=== PATIENT | female | born 2000 | race American Indian/Alaskan Native ===

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

== ENCOUNTER 2019-09-10 20:43 | Emergency (ER) | payer MEDICAID, OTHER ==
--- NOTE | 2019-09-10 22:27 | Emergency Department Report ---
ED Female HPI - General Chief complaint: Urogenital-Female Stated complaint: UTI/ CYST Time Seen by Provider: 09/10/19 22:28 Source: patient Mode of arrival: Ambulatory Limitations: No Limitations - History of Present Illness Initial comments: This is a 19-year-old female with no prior medical history presents the ED today complaining of left-sided breast swelling cyst x2 to 3 days. Patient states that she has had this Bartholin cyst about 3 times and has had it drained. Patient also stating that for the past couple of days she has noticed blood in her urine and some pressure with urination patient also admits to urinary urgency. Patient states last menstrual period was 2 to 3 weeks ago. She denies fever/chills/nausea vomiting abdominal pain, chest pain shortness of breath or any other symptoms MD Complaint: dysuria Location: suprapubic Severity: mild Severity scale (0 -10): 4 Worsens with: urination - Related Data Previous Rx's Medication Instructions Recorded Last Taken Type Vit Calc,Iron,Folic 1 each PO DAILY #30 tablet 11/10/16 05/09/17 Rx [ Vitamins] 1 HYDROcodone/APAP 5-325 [Taylor 1 each PO Q6HR PRN #7 tablet 05/11/17 Unknown Rx 5/325] Ibuprofen [Motrin 600 MG tab] 600 mg PO Q8H PRN #30 tablet 05/11/17 Unknown Rx Multivitamin with Iron 1 each PO DAILY #30 tablet 05/11/17 Unknown Rx [Multivitamins with Iron] Fluconazole (Nf) [Diflucan TAB] 150 mg PO ONCE #1 tablet 09/10/19 Unknown Rx Phenazopyridine [Pyridium] 200 mg PO BID #10 tab 09/10/19 Unknown Rx Sulfamethoxazole/Trimethoprim 1 each PO BID #20 tablet 09/10/19 Unknown Rx [Bactrim DS TAB] Allergies Allergy/AdvReac Type Severity Reaction Status Date / Time No Known Allergies Allergy Verified 05/10/17 04:30 ED Review of Systems ROS: Stated complaint: UTI/ CYST Other details as noted in HPI Comment: All other systems reviewed and negative ED Past Medical Hx - Past Medical History Hx Hypertension: No Hx Congestive Heart Failure: No Hx Diabetes: No Hx Deep Vein Thrombosis: No Hx Renal Disease: No Hx Sickle Cell Disease: No Hx Seizures: No Hx Asthma: No Hx COPD: No Hx HIV: No - Surgical History Past Surgical History?: No - Social History Smoking Status: Current Some Day Smoker Substance Use Type: None, Marijuana - Medications Home Medications: Home Medications Medication Instructions Recorded Confirmed Last Taken Type Vit Calc,Iron,Folic 1 each PO DAILY #30 tablet 11/10/16 05/10/17 05/09/17 Rx [ Vitamins] 1 HYDROcodone/APAP 5-325 [Taylor 1 each PO Q6HR PRN #7 tablet 05/11/17 Unknown Rx 5/325] Ibuprofen [Motrin 600 MG tab] 600 mg PO Q8H PRN #30 tablet 05/11/17 Unknown Rx Multivitamin with Iron 1 each PO DAILY #30 tablet 05/11/17 Unknown Rx [Multivitamins with Iron] Fluconazole (Nf) [Diflucan TAB] 150 mg PO ONCE #1 tablet 09/10/19 Unknown Rx Phenazopyridine [Pyridium] 200 mg PO BID #10 tab 09/10/19 Unknown Rx Sulfamethoxazole/Trimethoprim 1 each PO BID #20 tablet 09/10/19 Unknown Rx [Bactrim DS TAB] ED Physical Exam - General Limitations: No Limitations General appearance: alert, in no apparent distress - Head Head exam: Present: atraumatic, normocephalic - Eye Eye exam: Present: normal appearance - ENT ENT exam: Present: mucous membranes moist - Neck Neck exam: Present: normal inspection - Respiratory Respiratory exam: Present: normal lung sounds bilaterally. Absent: respiratory distress - Cardiovascular Cardiovascular Exam: Present: regular rate, normal rhythm. Absent: systolic murmur, diastolic murmur, rubs, gallop - GI/Abdominal GI/Abdominal exam: Present: soft, normal bowel sounds - External exam: Present: swelling (of the left bartholin gland 2-3 cm in diameter). Absent: erythema, lesions, lacerations, bleeding Speculum exam: Present: normal speculum exam. Absent: cervical discharge, vaginal bleeding - Extremities Exam Extremities exam: Present: normal inspection - Back Exam Back exam: Present: normal inspection - Neurological Exam Neurological exam: Present: alert, oriented X3 - Psychiatric Psychiatric exam: Present: normal affect, normal mood - Skin Skin exam: Present: warm, dry, intact, normal color. Absent: rash ED Course Vital Signs 09/10/19 20:46 Temperature 98.5 F Pulse Rate 107 H Respiratory 20 Rate Blood Pressure 121/74 O2 Sat by Pulse 99 Oximetry ED Medical Decision Making - Medical Decision Making 19-year-old male presents with a bacterial urinary tract infection and a mild Bartholin gland cyst ED course: Patient received an antibiotic dose and Motrin during ED stay Urinalysis is positive for bacteria, WBC, yeast, test negative I discussed this findings with the patient. I discussed the patient to make sure he completes all of the antibiotic dose even until symptoms resolve. I discussed with the patient on Pyridium will turn his urine orangeish color but will stop once he stops taking pyridium. I discussed with the patient to follow-up with her [facility] in the next 2 to 3 days. Referrals given to patient. Patient is in no acute distress, patient also has on instructions were given to him. She had on exam for ED stay. Critical care attestation.: If time is entered above; I have spent that time in minutes in the direct care of this critically ill patient, excluding procedure time. ED Disposition Clinical Impression: Hematuria due to acute cystitis, Bartholin gland cyst Disposition: TO HOME OR SELFCARE Is pt being admited?: No Does the pt Need Aspirin: No Condition: Stable Instructions: Acute Hematuria (ED), Bartholin Cyst (ED), Sitz Bath (GEN) Additional Instructions: Make sure to follow up with the [facility] as discussed. Take all your medications as you've been prescribed. If you have any worsening symptoms or develop new symptoms please return to ED immediately. Prescriptions: Sulfamethoxazole/Trimethoprim [Bactrim DS TAB] 1 each PO BID #20 tablet Fluconazole (Nf) [Diflucan TAB] 150 mg PO ONCE #1 tablet Phenazopyridine [Pyridium] 200 mg PO BID #10 tab Referrals: PRIMARY CARE [Primary Care Provider] - 3-5 Days [facility] [Provider Group] - 3-5 Days [facility] [Provider Group] - 3-5 Days [facility] [Provider Group] - 3-5 Days Forms: Accompanied Note, Work/School Release Form(ED)
[2019-09-10 22:48] LABS: HCG Qualitative,Urine Negative (Negative)
[2019-09-10 22:49] LABS: Bilirubin,Urine NEG (Negative); Blood,Urine LG (Negative); Color,Urine Red (Yellow)
[2019-09-10 22:50] LABS: RBC,Urine > 182.0 /HPF (0.0-6.0); WBC,Urine > 182.0 /HPF (0.0-6.0)
[2019-09-10 23:24] VITALS: BP 118/68
== END 2019-09-10 23:24 | disposition home or self-care (01) ==
LOC: ED 20:43
DX: N30.01 Acute cystitis with hematuria (principal); N75.0 Cyst of Bartholin's gland; F17.200 Nicotine dependence, unspecified, uncomplicated; F12.10 Cannabis abuse, uncomplicated; Z79.899 Other long term (current) drug therapy
CPT/HCPCS: 81001; 81025; 99283

== ENCOUNTER 2020-04-05 08:38 | Emergency (ER) | payer MEDICAID ==
[2020-04-05 09:10] VITALS: BP 116/73
[2020-04-05] MEDS ORDERED: IBUPROFEN 600 MG TAB PO ONE (09:27)
[2020-04-05] MEDS ORDERED: oxyCODONE 5 MG TAB PO ONE (11:21)
[2020-04-05] MEDS ORDERED: IBUPROFEN 800 MG TAB PO ONE (11:21)
--- NOTE | 2020-04-05 11:22 | Emergency Department Report ---
Abscess Boil HPI - HPI Chief Complaint: Skin/Abscess/Foreign Body Stated Complaint: CYST Time Seen by Provider: 04/05/20 11:16 Duration: >1 Week Location: Other Severity: Severe History: Yes Pain, No Fever, No Purulent Drainage, No Numbness, No Foreign Body, No Previous History, No Insect Bite HPI: Patient is a 19-year-old -[place] female who comes in with a left labial cyst. She states that she has not been able to get in with her [facility]. States that she has not been able to take the pain so she comes to the ER. She has no vaginal discharge or concern for STI. No dysuria. No fever or chills. Patient is tachycardic on admission to the ER most likely because she is walking with a limp due to the pain. Patient's last menstrual period was the beginning of the month. She is not concerned for . Patient states that she gets these abscesses often and and that they have never had to I&D them before. She states that she normally soaks in the bathtub and they get better. Patient denies any fever or chills. Patient's largest complaint is the pain that the abscess is causing. Home Medications: Previous Rx's Medication Instructions Recorded Last Taken Type Fluconazole (Nf) [Diflucan TAB] 150 mg PO ONCE #2 tablet 04/05/20 Unknown Rx Sulfamethoxazole/Trimethoprim 1 each PO BID #14 tablet 04/05/20 Unknown Rx [Bactrim DS TAB] Allergies/Adverse Reactions: Allergies Allergy/AdvReac Type Severity Reaction Status Date / Time No Known Allergies Allergy Verified 05/10/17 04:30 ED Review of Systems ROS: Stated complaint: CYST Other details as noted in HPI Comment: All other systems reviewed and negative ED Past Medical Hx - Past Medical History Previous Medical History?: No Hx Hypertension: No Hx Congestive Heart Failure: No Hx Diabetes: No Hx Deep Vein Thrombosis: No Hx Renal Disease: No Hx Sickle Cell Disease: No Hx Seizures: No Hx Asthma: No Hx COPD: No Hx HIV: No - Surgical History Past Surgical History?: No - Family History Family history: no significant - Social History Smoking Status: Never Smoker Substance Use Type: None - Medications Home Medications: Home Medications Medication Instructions Recorded Confirmed Last Taken Type Fluconazole (Nf) [Diflucan TAB] 150 mg PO ONCE #2 tablet 04/05/20 Unknown Rx Sulfamethoxazole/Trimethoprim 1 each PO BID #14 tablet 04/05/20 Unknown Rx [Bactrim DS TAB] ED Abscess Boil Physical Exam - Exam General: Vital signs noted. No distress. Alert and acting appropriately. Front/Back of Body, Lg (Color): 1 - Left labial abscess. Flatulence noted. No drainage. Size: 5 cm Exam: Yes Tenderness (Left labial tenderness), Yes Fluctuance, Yes Normal Neurologic Exam, Yes Normal Circulation, No Surrounding Cellulites/Erythema (Normal right labia.), No Lymphangitis, No Crepitation, No Heart Murmur Exam: Patient is alert and oriented with no focal deficit. S1-S2. Lungs clear to auscultation. Abdomen soft nontender. No CVA tenderness. I & D Note - I & D Note I & D Note: Area cleansed with Betadine and saline. 2% lidocaine 3 mL to numb the area. The abscess involves the entire left labia. It is large. I&D with a straight blade for only a small amount of purulent discharge. Packing was placed. The Dianna and cyst was not palpable underneath the abscess tissue. Patient educated on care and management of the packing. She is also been educated on care and management of the abscess. Patient was cleaned and given a pad to collect any additional drainage. Patient tolerated procedure well. ED Course Vital Signs 04/05/20 09:09 Temperature 97.3 F L Pulse Rate 127 H Respiratory 18 Rate Blood Pressure 116/73 [Right] O2 Sat by Pulse 97 Oximetry Critical care attestation.: If time is entered above; I have spent that time in minutes in the direct care of this critically ill patient, excluding procedure time. ED Medical Decision Making - Medical Decision Making I&D completed. Patient medicated for pain and started on Bactrim. Have discussed with patient discharge plan of care including Epson salt soaks, follow-up, medications, activity and diet. She verbalizes understanding. I have told patient that the abscess is quite large and I would have expected to get much more fluid out than I did. I have explained to her that I am concerned that the Bartholin cyst may actually be involved although I cannot palpate the cyst per se. I have encouraged her to follow my discharge instructions and follow-up with [facility] so that they can further evaluate this area. She verbalizes understanding and has been given an additional referral to our [facility]. Heart rate on discharge 90 per provider exam. Vital Signs 04/05/20 04/05/20 04/05/20 09:09 11:34 11:35 Temperature 97.3 F L Pulse Rate 127 H Respiratory 18 20 20 Rate Blood Pressure 116/73 [Right] O2 Sat by Pulse 97 Oximetry - Differential Diagnosis vag cyst vs bartholans ED Disposition Clinical Impression: Labial abscess Disposition: DC-01 TO HOME OR SELFCARE Is pt being admited?: No Does the pt Need Aspirin: No Condition: Stable Instructions: Skin Abscess, Skin Abscess, [id number] Additional Instructions: Medication as ordered today Motrin or Tylenol for pain Follow-up with primary care and/or [facility] in 48 hours for recheck-have provided you a referral should you need it. Diet and activity as tolerated Warm compresses will help with the pain. Continue your warm baths but use Epson salts to help drain the area. If the packing should follow-up do not be alarmed this is to be expected. Do not pick at or attempt to pop the abscess. Prescriptions: Sulfamethoxazole/Trimethoprim [Bactrim DS TAB] 1 each PO BID #14 tablet Fluconazole (Nf) [Diflucan TAB] 150 mg PO ONCE #2 tablet Referrals: PRIMARY MD LENA [Primary Care Provider] - 3-5 Days CINDY PARRA MD [Staff Physician] - 3-5 Days Time of Disposition: 11:22
[2020-04-05] MEDS ORDERED: SULFAMETHOXAZOLE/TRIMETHOPRIM 800/160MG DS TAB PO ONE (11:24)
[2020-04-05] MEDS ORDERED: LIDOCAINE (2%) 20 MG/1 ML VIAL 20 ML MDV INFILTRATI ONE (11:44)
[2020-04-05] MEDS ORDERED: SODIUM CHLORIDE 0.9% IRR 500 ML BOTTLE IR ONE (13:00)
== END 2020-04-05 13:05 | disposition home or self-care (01) ==
LOC: ED 08:38
DX: N76.4 Abscess of vulva (principal); Z79.899 Other long term (current) drug therapy

== ENCOUNTER 2021-01-26 12:05 | Emergency (ER) | payer SELFPAY ==
[2021-01-26 13:00] VITALS: BP 133/71
[2021-01-26] MEDS ORDERED: KETOROLAC 60 MG/2 ML INJ IM ONE (13:12)
[2021-01-26] MEDS ORDERED: oxyCODONE /ACETAMINOPHEN 5-325MG TAB PO ONE (13:12)
[2021-01-26] MEDS ORDERED: LIDOCAINE (1%) 10 MG/1 ML VIAL 20 ML MDV INFILTRATI ONE (13:12)
[2021-01-26] MEDS ORDERED: ONDANSETRON 4 MG ODT TAB PO ONE (13:13)
--- NOTE | 2021-01-26 14:20 | Emergency Department Report ---
ED General Adult HPI - General Chief complaint: Urogenital-Female Stated complaint: CYST Time Seen by Provider: 01/26/21 12:56 Source: patient Mode of arrival: Ambulatory Limitations: No Limitations - History of Present Illness Initial comments: 20-year-old -[place] female patient presents with complaints of left labial pain and swelling. 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 Patient is currently following with [facility] and reports that the [facility] recommended surgical intervention. Patient states she is not currently able to afford the surgery at this time. She states her current symptoms began 2 days ago and she rates her pain as a 10/10 in severity. No dysuria/hematuria or abnormal vaginal bleeding per patient. She also denies any dyspareunia or vaginal discharge. Ibuprofen not helping with pain per patient she denies any fever/chills/sweats. Severity scale (0 -10): 10 - Related Data Previous Rx's Medication Instructions Recorded Last Taken Type Fluconazole (Nf) [Diflucan TAB] 150 mg PO ONCE #2 tablet 04/05/20 Unknown Rx Acetaminophen/Codeine [Tylenol 1 tab PO Q8H PRN #6 tab 01/26/21 Unknown Rx /Codeine # 3 tab] Fluconazole [Diflucan TAB] 200 mg PO QDAY PRN #1 tablet 01/26/21 Unknown Rx Ibuprofen [Motrin 800 MG tab] 800 mg PO Q8HR PRN #20 tablet 01/26/21 Unknown Rx Sulfamethoxazole/Trimethoprim 1 each PO BID 7 Days #14 tablet 01/26/21 Unknown Rx [Bactrim DS TAB] metroNIDAZOLE [Flagyl TAB] 500 mg PO Q8H 7 Days #21 tab 01/26/21 Unknown Rx Allergies Allergy/AdvReac Type Severity Reaction Status Date / Time No Known Allergies Allergy Verified 05/10/17 04:30 ED Review of Systems ROS: Stated complaint: CYST Other details as noted in HPI Constitutional: denies: chills, fever, malaise, weakness Respiratory: shortness of breath. denies: cough Cardiovascular: denies: chest pain Gastrointestinal: denies: abdominal pain Genitourinary: denies: frequency, hematuria, discharge Skin: denies: change in color Hematological/Lymphatic: swollen glands ED Past Medical Hx - Past Medical History Hx Hypertension: No Hx Congestive Heart Failure: No Hx Diabetes: No Hx Deep Vein Thrombosis: No Hx Renal Disease: No Hx Sickle Cell Disease: No Hx Seizures: No Hx Asthma: No Hx COPD: No Hx HIV: No - Social History Smoking Status: Never Smoker - Medications Home Medications: Home Medications Medication Instructions Recorded Confirmed Last Taken Type Fluconazole (Nf) [Diflucan TAB] 150 mg PO ONCE #2 tablet 04/05/20 Unknown Rx Acetaminophen/Codeine [Tylenol 1 tab PO Q8H PRN #6 tab 01/26/21 Unknown Rx /Codeine # 3 tab] Fluconazole [Diflucan TAB] 200 mg PO QDAY PRN #1 tablet 01/26/21 Unknown Rx Ibuprofen [Motrin 800 MG tab] 800 mg PO Q8HR PRN #20 tablet 01/26/21 Unknown Rx Sulfamethoxazole/Trimethoprim 1 each PO BID 7 Days #14 tablet 01/26/21 Unknown Rx [Bactrim DS TAB] metroNIDAZOLE [Flagyl TAB] 500 mg PO Q8H 7 Days #21 tab 01/26/21 Unknown Rx ED Physical Exam - General Limitations: No Limitations General appearance: alert, in no apparent distress - Head Head exam: Present: atraumatic, normocephalic - Eye Eye exam: Present: normal appearance - Respiratory Respiratory exam: Absent: respiratory distress - Cardiovascular Cardiovascular Exam: Present: regular rate - External exam: Present: other (Tender swollen left Geronimo abscess noted without surrounding erythema or cellulitic changes) - Extremities Exam Extremities exam: Present: full ROM - Neurological Exam Neurological exam: Present: alert, oriented X3 - Psychiatric Psychiatric exam: Present: normal affect, normal mood - Skin Skin exam: Present: warm, dry, intact, normal color. Absent: rash ED Course Vital Signs 01/26/21 12:56 Temperature 98.2 F Pulse Rate 60 Respiratory 16 Rate Blood Pressure 133/71 [Right] - I & D Vagina Type of Procedure: Simple Site: Left labia Blade Size: 11 I & D Procedure: betadine prep, gauze wick placed Progress: 5 cc of lidocaine 1% without epi used to anesthetize area. Copious purulent drainage obtained from abscess. Minimal bleeding occurred. Patient tolerated procedure well without any immediate complications ED Medical Decision Making - Medical Decision Making 20-year-old -[place] female patient presents with complaints of left labial pain and swelling. 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 Patient is currently following with the [facility] and reports that the [facility] recommended surgical intervention. Patient states she is not currently able to afford the surgery at this time. She states her current symptoms began 2 days ago and she rates her pain as a 10/10 in severity. No dysuria/hematuria or abnormal vaginal bleeding per patient. She also denies any dyspareunia or vaginal discharge. Ibuprofen not helping with pain per patient she denies any fever/chills/sweats. Pathology abscess noted on exam. Incision and drainage performed. Unable to locate Word catheter in ED; packing placed instead. Patient informed to follow- up with her [facility] within 3 days. Discussed sitz bath, wound care, and signs and symptoms that should prompt immediate return to emergency department in detail with patient who verbalized understanding. She is well-appearing, her vitals are normal, she is stable for discharge home Critical care attestation.: If time is entered above; I have spent that time in minutes in the direct care of this critically ill patient, excluding procedure time. ED Disposition Clinical Impression: Bartholin's gland abscess Disposition: HOME / SELF CARE / HOMELESS Is pt being admited?: No Condition: Stable Instructions: Incision and Drainage, Care After, Bartholin's Cyst Additional Instructions: Please follow-up with your [facility] within 3 days for further evaluation and reassessment Prescriptions: Sulfamethoxazole/Trimethoprim [Bactrim DS TAB] 1 each PO BID 7 Days #14 tablet Fluconazole [Diflucan TAB] 200 mg PO QDAY PRN #1 tablet PRN Reason: yeast infection metroNIDAZOLE [Flagyl TAB] 500 mg PO Q8H 7 Days #21 tab Ibuprofen [Motrin 800 MG tab] 800 mg PO Q8HR PRN #20 tablet PRN Reason: pain Acetaminophen/Codeine [Tylenol /Codeine # 3 tab] 1 tab PO Q8H PRN #6 tab PRN Reason: Pain , Severe (7-10) Forms: Work/School Release Form(ED)
[2021-01-26 16:44] LABS: Color,Urine PINK (Yellow)
[2021-01-26 16:45] LABS: Bilirubin,Urine Negative (Negative)
[2021-01-26 16:46] LABS: Blood,Urine Negative (Negative)
[2021-01-26 16:47] LABS: HCG Qualitative,Urine Negative (Negative)
[2021-01-26 17:29] LABS: Mucus,Urine FEW /HPF
[2021-01-26 17:51] LABS: RBC,Urine > 182.0 /HPF (0.0-6.0); WBC,Urine > 182.0 /HPF (0.0-6.0)
== END 2021-01-26 16:30 | disposition home or self-care (01) ==
LOC: ED 12:05
DX: N75.1 Abscess of Bartholin's gland (principal); Z79.899 Other long term (current) drug therapy
CPT/HCPCS: 56420; 81001; 81025; 96372; 99283; J1885; Q0162